=== PATIENT | female | born 1960 | race Caucasian/White ===

== ENCOUNTER 2023-03-19 20:21 | Emergency (ER) | payer MEDICAID ==
[~2023-03-19] VITALS: Ht 157.4 cm; Wt 112.0 kg
[~2023-03-19 20:21] MED LIST: '''ZYRTEC PO; ASPIRIN81 M1 PO; BELBUCA150 MCG PO; DETROL LA4 MG PO; FENOFIBRATE48 M1 PO; HYDR12.5C PO; LIPITOR40 MG PO; LODINE400 MG PO; MONTELUKAST SOD10 MG PO; MULTIPLE VITAMI1 T22 PO; PRENATAL1 TA3 PO; ZOCOR20 MG PO; ZOLOFT100 MG PO
[2023-03-19] MEDS ORDERED: AZELASTINE137 MCG/0. NAS (20:30)
[2023-03-19] MEDS ORDERED: MELOXICAM15 MG PO (20:30)
[2023-03-19] MEDS ORDERED: ROSUVASTATIN CA20 MG PO (20:31)
[2023-03-19] MEDS ORDERED: CETIRIZINE10 MG PO (20:31)
[2023-03-19] MEDS ORDERED: OXYBUTYNIN10 MG PO (20:33)
[2023-03-19] MEDS ORDERED: PROVENTIL HFA6.7 GM INH (20:34)
[2023-03-19] MEDS ORDERED: BUPROPION HYDR150 M1 PO (20:35)
[2023-03-19] MEDS ORDERED: FERRETTS325 M1 PO (20:35)
== END 2023-03-19 22:03 | disposition home or self-care (01) ==
LOC: ED 20:21
DX: S51.811A Laceration without foreign body of right forearm, initial encounter (principal); M25.551 Pain in right hip; K21.9 Gastro-esophageal reflux disease without esophagitis; Z88.0 Allergy status to penicillin; Z88.5 Allergy status to narcotic agent; Z98.890 Other specified postprocedural states; Z90.12 Acquired absence of left breast and nipple; W01.198A Fall on same level from slipping, tripping and stumbling with subsequent striking against other object, initial encounter; Y93.G3 Activity, cooking and baking; Y92.009 Unspecified place in unspecified non-institutional (private) residence as the place of occurrence of the external cause; Y99.8 Other external cause status